=== PATIENT | male | born 1945 | race Caucasian/White ===

== ENCOUNTER 2016-11-20 09:09 | Inpatient (IN) | payer MEDICARE ==
[~2016-11-20] VITALS: Ht 182.9 cm; Wt 102.0 kg
[~2016-11-20 09:09] MED LIST: ALIS300T PO; ALLO300T PO; AMLO5TAB2 PO; ASPI-515 PO; ATOR80TA75 PO; CALC0.25 PO; CALC1TAB87 PO; CHOL500014 PO; CLON1PAT7 TD; CLOP75TA22 PO; FERR325T20 PO; FISH OIL OMEGA1 EACH PO; FURO40TA6 PO; GABA300C10 PO; GABAPENTIN; INSU100C5 SQ-INSULIN; INSU100V8 SQ; ISOS60TA36 PO; LINA145C PO; LISI40TA PO; LOSA50TA6 PO; METO25TA35 PO; METO5TAB5 PO; MULT-658 PO; NITR0.4T8 SL; PANT40TA5 PO; PREG50CA PO; SIMV40TA3 PO; SUCR500T PO; TAMS0.4C2 PO; TELM80TA PO
[2016-11-20] MEDS ORDERED: SODIUM CHLORIDE FLUSH 10ML SYR IVF ONE (10:30)
[2016-11-20 10:44] LABS: BLOOD UREA NITROGEN 46 mg/dL (7-18)
[2016-11-20] MEDS ORDERED: SODIUM CHLORIDE FLUSH 10ML SYR IVF PRN (11:00)
[2016-11-20] MEDS: ASPIRIN 81 MG TABLET EC PO SCH (12:30)
[2016-11-20] MEDS ORDERED: SUCROFERRIC OXYHYDROXIDE PO SCH (12:30)
[2016-11-20] MEDS: GABAPENTIN 300 MG CAPSULE PO SCH (12:30)
[2016-11-20] MEDS: LISINOPRIL 20 MG TABLET PO SCH (12:30)
[2016-11-20] MEDS ORDERED: INSULIN DETEMIR 100 UNITS/ML, PEN SQ-INSULIN PRN (12:30)
[2016-11-20] MEDS: FERROUS SULFATE 325 MG TABLET PO SCH (12:30)
[2016-11-20] MEDS ORDERED: ERGOCALCIFEROL 50,000 UNIT CAPSULE PO SCH (12:30)
[2016-11-20] MEDS: MULTIVITAMIN 1 TABLET PO SCH (12:30)
[2016-11-20] MEDS ORDERED: NITROGLYCERIN 0.4 MG BOTTLE (25 TABS) SL SCH (12:30)
[2016-11-20] MEDS: PANTOPROZOLE 40MG TABLET PO SCH (12:30)
[2016-11-20] MEDS ORDERED: TEMPLATE NON-FORMULARY MED. (Linaclotide** (Linzess**) 145 MCG) HOMEMEDPO SCH (12:30)
[2016-11-20] MEDS: ALLOPURINOL 100 MG TABLET PO SCH (12:30)
[2016-11-20] MEDS: AMLODIPINE 5 MG TABLET PO SCH (12:30)
[2016-11-20] MEDS: CLOPIDOGREL 75 MG TABLET PO SCH (12:30)
[2016-11-20] MEDS: OMEGA-3/FISH OIL CAPSULE PO SCH (12:30)
[2016-11-20] MEDS ORDERED: POLYETHYLENE GLYCOL 17 GM PACKET PO PRN (13:00)
[2016-11-20] MEDS ORDERED: TEMAZEPAM 15 MG CAPSULE PO PRN (13:00)
[2016-11-20] MEDS: INSULIN ASPART 100 UNITS/ML, PEN SQ-INSULIN SCH ×3 (13:00→21:00)
[2016-11-20] MEDS ORDERED: ONDANSETRON 2MG/ML, 2ML IVPush PRN (13:00)
[2016-11-20] MEDS ORDERED: morphine SULFATE 10 MG/ML, 1ML IVPush PRN (13:00)
[2016-11-20] MEDS ORDERED: hydrALAzine 20 MG/ML, 1ML IVPush PRN (13:00)
[2016-11-20] MEDS ORDERED: ACETAMINOPHEN 325 MG TABLET PO PRN (13:00)
[2016-11-20] MEDS ORDERED: HYDROcodone/APAP 5/325 TABLET PO PRN (13:00)
[2016-11-20 15:28] VITALS: BP 174/90
[2016-11-20 19:22] VITALS: BP 115/51
[2016-11-20] MEDS: METOPROLOL TARTRATE 25 MG TABLET PO SCH (21:00)
[2016-11-20] MEDS: ATORVASTATIN 40 MG TABLET PO SCH (21:00)
[2016-11-20] MEDS: CALCITRIOL 0.25 MCG CAPSULE PO SCH (21:00)
[2016-11-20] MEDS: FUROSEMIDE 40 MG TABLET PO SCH (21:00)
[2016-11-20] MEDS: INSULIN DETEMIR 100 UNITS/ML, PEN SQ-INSULIN SCH (21:13)
[2016-11-21 02:00] VITALS: BP 144/73
[2016-11-21 05:56] LABS: BLOOD UREA NITROGEN 27 mg/dL (7-18)
[2016-11-21 05:57] LABS: ASPARTATE AMINO TRANSFERASE 29 U/L (15-37)
[2016-11-21] MEDS ORDERED: SODIUM CHLORIDE INHALATION 7%, 4 ML NPPB ONE (06:00)
[2016-11-21] MEDS: INSULIN ASPART 100 UNITS/ML, PEN SQ-INSULIN SCH ×4 (07:00→20:51)
[2016-11-21] MEDS: FUROSEMIDE 40 MG TABLET PO SCH ×2 (08:52→20:43)
[2016-11-21] MEDS: SUCROFERRIC OXYHYDROXIDE HOMEMEDPO SCH (08:52)
[2016-11-21] MEDS: FERROUS SULFATE 325 MG TABLET PO SCH (08:54)
[2016-11-21] MEDS: ASPIRIN 81 MG TABLET EC PO SCH (08:54)
[2016-11-21] MEDS: OMEGA-3/FISH OIL CAPSULE PO SCH (08:54)
[2016-11-21] MEDS: METOPROLOL TARTRATE 25 MG TABLET PO SCH ×2 (08:55→20:43)
[2016-11-21] MEDS: CLOPIDOGREL 75 MG TABLET PO SCH (08:55)
[2016-11-21] MEDS: MULTIVITAMIN 1 TABLET PO SCH (08:55)
[2016-11-21] MEDS: CALCITRIOL 0.25 MCG CAPSULE PO SCH ×2 (08:55→20:43)
[2016-11-21] MEDS: LISINOPRIL 20 MG TABLET PO SCH (08:55)
[2016-11-21] MEDS: GABAPENTIN 300 MG CAPSULE PO SCH (08:55)
[2016-11-21] MEDS: PANTOPROZOLE 40MG TABLET PO SCH (08:55)
[2016-11-21] MEDS: INSULIN DETEMIR 100 UNITS/ML, PEN SQ-INSULIN SCH ×2 (08:56→20:51)
[2016-11-21] MEDS: AMLODIPINE 5 MG TABLET PO SCH (08:56)
[2016-11-21 08:58] VITALS: BP 178/87
[2016-11-21] MEDS: ALLOPURINOL 100 MG TABLET PO SCH (09:00)
[2016-11-21 12:52] VITALS: BP 160/70
[2016-11-21 20:00] VITALS: BP 157/73
[2016-11-21] MEDS: ATORVASTATIN 40 MG TABLET PO SCH (20:43)
[2016-11-22 03:50] VITALS: BP 167/85
[2016-11-22] MEDS ORDERED: SODIUM CHLORIDE INHALATION 7%, 4 ML NPPB ONE ×2 (05:00→07:00)
[2016-11-22] MEDS: INSULIN ASPART 100 UNITS/ML, PEN SQ-INSULIN SCH ×4 (07:00→20:38)
[2016-11-22 07:21] VITALS: BP 168/67
[2016-11-22] MEDS: SUCROFERRIC OXYHYDROXIDE HOMEMEDPO SCH (08:00)
[2016-11-22] MEDS: FERROUS SULFATE 325 MG TABLET PO SCH (12:40)
[2016-11-22] MEDS: ASPIRIN 81 MG TABLET EC PO SCH (12:40)
[2016-11-22] MEDS: OMEGA-3/FISH OIL CAPSULE PO SCH (12:41)
[2016-11-22] MEDS: LISINOPRIL 20 MG TABLET PO SCH (12:41)
[2016-11-22] MEDS: FUROSEMIDE 40 MG TABLET PO SCH ×2 (12:41→20:37)
[2016-11-22] MEDS: PANTOPROZOLE 40MG TABLET PO SCH (12:41)
[2016-11-22] MEDS: GABAPENTIN 300 MG CAPSULE PO SCH (12:42)
[2016-11-22] MEDS: METOPROLOL TARTRATE 25 MG TABLET PO SCH ×2 (12:42→20:37)
[2016-11-22] MEDS: AMLODIPINE 5 MG TABLET PO SCH (12:42)
[2016-11-22] MEDS: CLOPIDOGREL 75 MG TABLET PO SCH (12:43)
[2016-11-22] MEDS: ALLOPURINOL 100 MG TABLET PO SCH (12:43)
[2016-11-22] MEDS: CALCITRIOL 0.25 MCG CAPSULE PO SCH ×2 (12:43→20:37)
[2016-11-22] MEDS: MULTIVITAMIN 1 TABLET PO SCH (12:43)
[2016-11-22] MEDS: INSULIN DETEMIR 100 UNITS/ML, PEN SQ-INSULIN SCH ×2 (12:44→20:38)
[2016-11-22 13:13] VITALS: BP 137/84
[2016-11-22 19:30] VITALS: BP 151/71
[2016-11-22] MEDS: ATORVASTATIN 40 MG TABLET PO SCH (20:37)
[2016-11-23 02:30] VITALS: BP 136/72
[2016-11-23] MEDS: INSULIN ASPART 100 UNITS/ML, PEN SQ-INSULIN SCH ×4 (07:00→20:43)
[2016-11-23] MEDS: SUCROFERRIC OXYHYDROXIDE HOMEMEDPO SCH (07:18)
[2016-11-23] MEDS: CALCITRIOL 0.25 MCG CAPSULE PO SCH ×2 (08:54→20:41)
[2016-11-23] MEDS: CLOPIDOGREL 75 MG TABLET PO SCH (08:54)
[2016-11-23] MEDS: ALLOPURINOL 100 MG TABLET PO SCH (08:54)
[2016-11-23] MEDS: MULTIVITAMIN 1 TABLET PO SCH (08:54)
[2016-11-23] MEDS: LISINOPRIL 20 MG TABLET PO SCH (08:54)
[2016-11-23] MEDS: PANTOPROZOLE 40MG TABLET PO SCH (08:54)
[2016-11-23] MEDS: METOPROLOL TARTRATE 25 MG TABLET PO SCH ×2 (08:55→20:42)
[2016-11-23] MEDS: ASPIRIN 81 MG TABLET EC PO SCH (08:55)
[2016-11-23] MEDS: FUROSEMIDE 40 MG TABLET PO SCH ×2 (08:55→20:41)
[2016-11-23] MEDS: FERROUS SULFATE 325 MG TABLET PO SCH (08:55)
[2016-11-23] MEDS: AMLODIPINE 5 MG TABLET PO SCH (08:55)
[2016-11-23] MEDS: OMEGA-3/FISH OIL CAPSULE PO SCH (08:55)
[2016-11-23] MEDS: GABAPENTIN 300 MG CAPSULE PO SCH (08:55)
[2016-11-23 08:56] VITALS: BP 139/76
[2016-11-23] MEDS: INSULIN DETEMIR 100 UNITS/ML, PEN SQ-INSULIN SCH ×2 (08:56→20:43)
[2016-11-23 12:55] VITALS: BP 129/69
[2016-11-23 19:43] VITALS: BP 143/78
[2016-11-23] MEDS: ATORVASTATIN 40 MG TABLET PO SCH (20:41)
[2016-11-24 03:50] VITALS: BP 137/73
[2016-11-24] MEDS: INSULIN ASPART 100 UNITS/ML, PEN SQ-INSULIN SCH (07:00)
[2016-11-24 08:00] VITALS: BP 124/69
[2016-11-24] MEDS: SUCROFERRIC OXYHYDROXIDE HOMEMEDPO SCH (09:00)
[2016-11-24] MEDS: OMEGA-3/FISH OIL CAPSULE PO SCH (09:40)
[2016-11-24] MEDS: AMLODIPINE 5 MG TABLET PO SCH (09:41)
[2016-11-24] MEDS: ASPIRIN 81 MG TABLET EC PO SCH (09:41)
[2016-11-24] MEDS: CALCITRIOL 0.25 MCG CAPSULE PO SCH (09:41)
[2016-11-24] MEDS: FERROUS SULFATE 325 MG TABLET PO SCH (09:41)
[2016-11-24] MEDS: CLOPIDOGREL 75 MG TABLET PO SCH (09:41)
[2016-11-24] MEDS: GABAPENTIN 300 MG CAPSULE PO SCH (09:41)
[2016-11-24] MEDS: ALLOPURINOL 100 MG TABLET PO SCH (09:41)
[2016-11-24] MEDS: FUROSEMIDE 40 MG TABLET PO SCH (09:41)
[2016-11-24] MEDS: PANTOPROZOLE 40MG TABLET PO SCH (09:41)
[2016-11-24] MEDS: METOPROLOL TARTRATE 25 MG TABLET PO SCH (09:41)
[2016-11-24] MEDS: INSULIN DETEMIR 100 UNITS/ML, PEN SQ-INSULIN SCH (09:42)
[2016-11-24] MEDS: MULTIVITAMIN 1 TABLET PO SCH (09:42)
[2016-11-24] MEDS: LISINOPRIL 20 MG TABLET PO SCH (09:42)
== END 2016-11-24 12:30 | disposition home or self-care (01) | DRG 682 ==
LOC: ED 09:54 → EDIP 10:50 → 4WST 14:52
PROVIDERS: ADMIT Internal Medicine; ATTEND Internal Medicine
PROC: 5A1D60Z (ICD-10-PCS; principal; 2016-11-20)
DX: I12.0 Hypertensive chronic kidney disease with stage 5 chronic kidney disease or end stage renal disease (principal); N18.6 End stage renal disease; D63.1 Anemia in chronic kidney disease; E11.22 Type 2 diabetes mellitus with diabetic chronic kidney disease; E66.9 Obesity, unspecified; E78.5 Hyperlipidemia, unspecified; F17.210 Nicotine dependence, cigarettes, uncomplicated; F40.240 Claustrophobia; I25.10 Atherosclerotic heart disease of native coronary artery without angina pectoris; I73.9 Peripheral vascular disease, unspecified; Z20.1 Contact with and (suspected) exposure to tuberculosis; E11.42 Type 2 diabetes mellitus with diabetic polyneuropathy; K58.9 Irritable bowel syndrome, unspecified; Z79.4 Long term (current) use of insulin; Z95.1 Presence of aortocoronary bypass graft; Z99.2 Dependence on renal dialysis; Z83.3 Family history of diabetes mellitus; Z68.30 Body mass index [BMI] 30.0-30.9, adult
CPT/HCPCS: 36415; 71010; 80048; 80053; 82962; 85025; 87015; 87116; 87206; 99285; J1815

== ENCOUNTER 2016-12-24 05:37 | Day surgery (SDC) | payer MEDICARE ==
[~2016-12-24] VITALS: Ht 182.9 cm; Wt 103.0 kg
[~2016-12-24 05:37] MED LIST changes: +ATOR-2 PO; -ATOR80TA75 PO; -CHOL500014 PO; +CHOL500045 PO; -CLOP75TA22 PO; +CLOP75TA52 PO; +FERR325T18 PO; -FERR325T20 PO; +NITR0.4T28 SL; -NITR0.4T8 SL
[2016-12-24 06:32] VITALS: BP 157/85
[2016-12-24] MEDS ORDERED: INDOCYANINE GREEN 25 MG VIAL ONE (06:56)
[2016-12-24] MEDS ORDERED: EPINEPHRINE SYRINGE 0.1 MG/ML, 10ML ONE (06:56)
[2016-12-24 07:11] VITALS: BP 157/88
[2016-12-24] MEDS ORDERED: MIDAZOLAM 1 MG/ML, 2ML ONE (07:17)
[2016-12-24] MEDS ORDERED: FENTANYL PF 100 MCG/2ML ONE (07:17)
[2016-12-24] MEDS ORDERED: PROPOFOL 10 MG/ML, 20ML ONE (07:57)
[2016-12-24] MEDS ORDERED: SUCCINYLCHOLINE 20 MG/ML, 10ML ONE (07:57)
[2016-12-24] MEDS ORDERED: ONDANSETRON 2MG/ML, 2ML IVPush PRN (08:30)
[2016-12-24] MEDS ORDERED: ACETAMINOPHEN 325 MG TABLET PO PRN (08:30)
[2016-12-24] MEDS ORDERED: METOCLOPRAMIDE 5 MG/ML, 2ML IV PRN (08:30)
[2016-12-24] MEDS ORDERED: FENTANYL PF 100 MCG/2ML IV PRN (08:30)
[2016-12-24] MEDS ORDERED: OXYcodone 5 MG/5 ML ORAL.SOL UDC PO PRN (08:30)
[2016-12-24] MEDS ORDERED: HYDROmorphone 1 MG/ML, 1ML IV PRN (08:30)
[2016-12-24] MEDS ORDERED: LABETALOL 5MG/ML, 20ML ONE (09:03)
[2016-12-24] MEDS: LABETALOL 5MG/ML, 20ML IV PRN ×4 (09:05→09:26)
[2016-12-24] MEDS ORDERED: hydrALAzine 20 MG/ML, 1ML ONE (09:28)
[2016-12-24] MEDS: hydrALAzine 20 MG/ML, 1ML IV PRN ×2 (09:33→09:56)
== END 2016-12-24 10:55 ==
LOC: OUT 05:37
PROVIDERS: ATTEND Internal Medicine Geriatric Medicine
DX: D13.2 Benign neoplasm of duodenum (principal); K31.89 Other diseases of stomach and duodenum; E11.22 Type 2 diabetes mellitus with diabetic chronic kidney disease; I12.0 Hypertensive chronic kidney disease with stage 5 chronic kidney disease or end stage renal disease; N18.6 End stage renal disease; I25.10 Atherosclerotic heart disease of native coronary artery without angina pectoris; D64.9 Anemia, unspecified; K21.9 Gastro-esophageal reflux disease without esophagitis; Z99.2 Dependence on renal dialysis; Z79.82 Long term (current) use of aspirin; Z95.1 Presence of aortocoronary bypass graft; Z79.4 Long term (current) use of insulin
CPT/HCPCS: 43237; 43251; 82962; 88305; J0330; J0360; J2250; J2704; J3010

== ENCOUNTER 2017-02-17 05:14 | Day surgery (SDC) | payer MEDICARE ==
[~2017-02-17] VITALS: Ht 182.9 cm; Wt 108.6 kg
[2017-02-17] MEDS ORDERED: SODIUM CHLORIDE 0.9% 1,000 ML IV SCH ×2 (06:04→07:32)
[2017-02-17] MEDS ORDERED: FENTANYL PF 100 MCG/2ML ONE ×2 (06:41)
[2017-02-17] MEDS ORDERED: MIDAZOLAM 1 MG/ML, 2ML ONE (06:41)
[2017-02-17] MEDS ORDERED: PROPOFOL 10 MG/ML, 20ML ONE (06:43)
[2017-02-17] MEDS ORDERED: ROCURONIUM 10 MG/ML ONE (06:44)
[2017-02-17] MEDS ORDERED: CEFAZOLIN 1,000 MG ONE ×2 (06:45)
[2017-02-17] MEDS ORDERED: GLYCOPYRROLATE 0.4 MG/2 ML, 2ML ONE (06:46)
[2017-02-17] MEDS ORDERED: NEOSTIGMINE 1 MG/ML, 10ML ONE (06:46)
[2017-02-17] MEDS ORDERED: BUPIVACAINE/PF 0.5% ONE (06:54)
[2017-02-17] MEDS ORDERED: EPINEPHRINE 1 MG/ML, 1ML ONE (06:54)
[2017-02-17 06:57] VITALS: BP 202/90
[2017-02-17] MEDS ORDERED: ONDANSETRON 2MG/ML, 2ML IVPush PRN (07:30)
[2017-02-17] MEDS ORDERED: HYDROmorphone 1 MG/ML, 1ML IV PRN (07:30)
[2017-02-17] MEDS ORDERED: ACETAMINOPHEN 325 MG TABLET PO PRN (07:30)
[2017-02-17] MEDS ORDERED: hydrALAzine 20 MG/ML, 1ML IV PRN (07:30)
[2017-02-17] MEDS ORDERED: OXYcodone 5 MG/5 ML ORAL.SOL UDC PO PRN (07:30)
[2017-02-17] MEDS ORDERED: LABETALOL 5MG/ML, 20ML IV PRN (07:30)
[2017-02-17] MEDS ORDERED: FENTANYL PF 100 MCG/2ML IV PRN (07:30)
[2017-02-17] MEDS ORDERED: PROMETHAZINE 25 MG/ML, 1ML IV PRN (07:30)
[2017-02-17] MEDS ORDERED: ROCURONIUM 10MG/ML,5ML ONE (07:53)
[2017-02-17] MEDS ORDERED: LABETALOL 5MG/ML, 20ML ONE (08:54)
[2017-02-17] MEDS ORDERED: ACETAMINOPHEN 650 MG/20.3 ML UDC ONE (08:54)
[2017-02-17] MEDS ORDERED: OXYcodone 5 MG/5 ML ORAL.SOL UDC ONE (08:55)
[2017-02-17] MEDS ORDERED: hydrALAzine 20 MG/ML, 1ML ONE (09:14)
== END 2017-02-17 10:45 | disposition home or self-care (01) ==
LOC: OUT 05:14
PROVIDERS: ATTEND Surgery Vascular Surgery
DX: N19 Unspecified kidney failure (principal); T85.9XXA Unspecified complication of internal prosthetic device, implant and graft, initial encounter; I12.0 Hypertensive chronic kidney disease with stage 5 chronic kidney disease or end stage renal disease; E11.22 Type 2 diabetes mellitus with diabetic chronic kidney disease; Y83.8 Other surgical procedures as the cause of abnormal reaction of the patient, or of later complication, without mention of misadventure at the time of the procedure; Y92.89 Other specified places as the place of occurrence of the external cause; I25.10 Atherosclerotic heart disease of native coronary artery without angina pectoris; K21.9 Gastro-esophageal reflux disease without esophagitis
CPT/HCPCS: 36415; 36590; 49324; 80047; 93005; J0171; J0360; J0690; J2250; J2704; J2710; J3010; J3490; J7030